=== PATIENT | female | born 1990 ===

== ENCOUNTER 2018-05-13 11:01 | Emergency (ER) | payer OTHER ==
[2018-05-13 11:46] LABS: SQUAMOUS EPITHIAL 21 /hpf (0-5); URINE BACTERIA RARE (<OCC); URINE BILIRUBIN NEGATIVE (NEGATIVE); URINE BLOOD NEGATIVE (NEGATIVE); URINE CLARITY Hazy (Clear); URINE COLOR Yellow (YELLOW); URINE GLUCOSE (UA) NORMAL (Normal); URINE LEUKOCYTE ESTERASE TRACE Leu/uL (Negative); URINE PROTEIN NEGATIVE (NEGATIVE); URINE UROBILINOGEN NORMAL mg/dL (0.2-1.0)
[2018-05-13 12:03] LABS: BASO % 0.6 % (0.0-2.0); EOS # 0.1 K/uL (0.0-0.7); EOS % 0.6 % (0.0-4.0); HEMOGLOBIN 13.3 g/dL (11.0-16.0); LYMPH % 23.6 % (20.0-40.0); MEAN CELL VOLUME 87.4 fL (81.0-99.0); MEAN CORPUSCULAR HEMOGLOBIN 29.9 pg (27.0-31.0); MEAN CORPUSCULAR HGB CONC 34.2 g/dL (33.0-37.0); MEAN PLATELET VOLUME 8.5 fL (7.2-11.7); MONO # 0.5 K/uL (0.0-0.8); MONO % 5.5 % (0.0-10.0); NEUT # 5.8 K/uL (1.8-7.0); NEUT % 69.7 % (50.0-75.0); RBC 4.46 Mil/uL (3.80-5.20); RED CELL DISTRIBUTION WIDTH 13.4 % (11.5-14.5); WHITE BLOOD COUNT 8.3 K/uL (4.8-10.8)
[2018-05-13 12:14] LABS: ALB/GLOB RATIO 1.1 (1.0-2.1); ALBUMIN 3.9 g/dL (3.5-5.0); ALT/SGPT 16 U/L (9-52); AST/SGOT 17 U/L (14-36); BLOOD UREA NITROGEN 8 mg/dL (7-17); CALCIUM 9.4 mg/dl (8.6-10.4); GFR AFRICAN-AMERICAN > 60; GFR NON-AFRICAN AMERICAN > 60
[2018-05-13 12:15] VITALS: RESP 18; O2SAT 100
--- NOTE | 2018-05-13 14:48 | US ---
Pelvic ultrasound History: . Pain. Comparison: None available. Technique: Real-time sonography was performed through the pelvis utilizing transabdominal and transvaginal technique. Findings: LMP of 03/03/2018. Estimated gestational age by LMP of 10 weeks and 1 day[place] [address] [place]CG. Uterus: 10.2 x 6.9 x 8.3 centimeters. Heterogeneous echotexture. Anteverted. Cervix measures 2.98 centimeters. Intrauterine gestational sac measures 4.4 centimeters corresponding to a gestational age of 9 weeks and 6 days. Some internal echoes and/or echogenic debris at the level of the gestational sac. Yolk sac measures 2.5 millimeters. [place]-rump length of 2.4 centimeters corresponding to a gestational age of 9 weeks and 1 day. Suggestion of a small amount of subchorionic hemorrhage measuring up to 8 millimeters. No heart rate identified. Right ovary: 3.1 x 1.9 x 2.5 centimeters. Normal flow. Left ovary: 3.5 x 2.4 x 3.4 centimeters. Normal flow. Heterogeneous cyst measuring 1.3 x 0.8 x 1.4. Small amount of free fluid in the pelvic cul-de-sac. Impression: Intrauterine corresponding to a gestational age of 9 weeks and 1 days by crown-rump length of 2.4 centimeters. No heart rate identified. This may represent a nonviable . Continued interval follow-up is recommended if clinically indicated. Increased echogenicity and/or echogenic debris noted within the intrauterine gestational sac. Intrauterine gestational sac measures 4.4 centimeters corresponding to a gestational age of 9 weeks 6 days. Suggestion of a small amount of subchorionic hemorrhage measuring up to 8 millimeters adjacent to the gestational sac. 1.4 centimeter left ovarian cyst. Limited 1st trimester ultrasound for viability purposes only. Continued interval followup with serial ultrasound, serial HCG levels, and gynecological consultation would be helpful if clinically indicated.
--- NOTE | 2018-05-13 14:55 | C.PDOC ---
History Of Present Illness 27 y/o female, , presents to ED for complaints of pelvic pain that began on Monday. Patient describes pain as menstrual cramping. Patient also states taking Tylenol PRESIDING STEWARD for relief. Denies vaginal bleeding, vaginal discharge, back pain, vomiting, dysuria, or urinary frequency. Time Seen by Provider: 05/13/18 11:08 Chief Complaint (Nursing): Abdominal Pain History Per: Patient History/Exam Limitations: no limitations Onset/Duration Of Symptoms: Days Current Symptoms Are (Timing): Still Present Location Of Pain/Discomfort: Suprapubic Radiation Of Pain To:: None Quality Of Discomfort: Cramping Associated Symptoms: denies: Fever, Chills, Nausea, Vomiting, Diarrhea, Urinary Symptoms Exacerbating Factors: None Alleviating Factors: None Last Bowel Movement: Today Recent travel outside of the [place]: No Abnormal Vaginal Bleeding: No : 1 Para: 0 Past Medical History Reviewed: Historical Data, Nursing Documentation, Vital Signs Vital Signs: Last Vital Signs Temp 97.9 F 05/13/18 15:45 Pulse 90 05/13/18 15:45 Resp 18 05/13/18 15:45 BP 115/74 05/13/18 15:45 Pulse Ox 100 05/13/18 15:53 - Medical History PMH: No Chronic Diseases Surgical History: No Surg Hx Family History: States: No Known Family Hx - Social History Hx Alcohol Use: No Hx Substance Use: No - Immunization History Hx Tetanus Toxoid Vaccination: No Hx Influenza Vaccination: No Hx Pneumococcal Vaccination: No Review Of Systems Constitutional: Negative for: Fever, Chills Gastrointestinal: Negative for: Nausea, Vomiting, Abdominal Pain, Diarrhea Genitourinary: Positive for: Pelvic Pain. Negative for: Dysuria, Frequency, Vaginal Discharge, Vaginal Bleeding Neurological: Negative for: Weakness, Numbness Physical Exam - Physical Exam Appears: Well, Non-toxic, No Acute Distress Skin: Normal Color, Warm, Dry, No Rash Head: Atraumatic, Normacephalic Eye(s): bilateral: Normal Inspection, PERRL, EOMI Oral Mucosa: Moist Neck: Supple Chest: Symmetrical, No Tenderness Cardiovascular: Rhythm Regular, No Murmur Respiratory: Normal Breath Sounds, No Decreased Breath Sounds, No Rales, No Rhonchi, No Wheezing Gastrointestinal/Abdominal: Soft, Tenderness (Suprapubic ), No Distention, No Guarding, No Rebound Extremity: Normal ROM, No Deformity Extremity: Bilateral: Atraumatic, Normal Color And Temperature, Normal ROM Neurological/Psych: Oriented x3, Normal Speech Gait: Steady ED Course And Treatment - Laboratory Results Result Diagrams: 05/13/18 11:59 05/13/18 11:59 O2 Sat by Pulse Oximetry: 100 (RA) Pulse Ox Interpretation: Normal - CT Scan/US Obstetrics US Other Rad Studies (CT/US): Read By Radiologist, Radiology Report Reviewed CT/US Interpretation: Pelvic ultrasound. History: . Pain. Comparison : None available. Technique: Real-time sonography was performed through the pelvis utilizing transabdominal and transvaginal technique. Findings: LMP of 03/03/2018. Estimated gestational age by LMP of 10 weeks and 1 day[place] [address] HCG. Uterus: 10.2 x 6.9 x 8.3 centimeters. Heterogeneous echotexture. Anteverted. Cervix measures 2.98 centimeters. Intrauterine gestational sac measures 4.4 centimeters corresponding to a gestational age of 9 weeks and 6 days. Some internal echoes and/or echogenic debris at the level of the gestational sac. Yolk sac measures 2.5 millimeters. [place]-rump length of 2.4 centimeters corresponding to a gestational age of 9 weeks and 1 day. Suggestion of a small amount of subchorionic hemorrhage measuring up to 8 millimeters. No heart rate identified. Right ovary: 3.1 x 1.9 x 2.5 centimeters. Normal flow. Left ovary: 3.5 x 2.4 x 3.4 centimeters. Normal flow. Heterogeneous cyst measuring 1.3 x 0.8 x 1.4. Small amount of free fluid in the pelvic cul-de-sac. Impression: Intrauterine corresponding to a gestational age of 9 weeks and 1 days by crown-rump length of 2.4 centimeters. No heart rate identified. This may represent a nonviable . Continued interval follow-up is recommended if clinically indicated. Increased echogenicity and/or echogenic debris noted within the intrauterine gestational sac. Intrauterine gestational sac measures 4.4 centimeters corresponding to a gestational age of 9 weeks 6 days. Suggestion of a small amount of subchorionic hemorrhage measuring up to 8 millimeters adjacent to the gestational sac. 1.4 centimeter left ovarian cyst. Limited 1st trimester ultrasound for viability purposes only. Continued interval followup with serial ultrasound, serial HCG levels, and gynecological consultation would be helpful if clinically indicated. Progress Note: Ordered BBK, blood work, urinalysis, urine culture, and Obstetrics US. Used fast food shift supervisor [id number]. Gave Patient copies of work up, follow up in ER or with BARREL POLISHER in 2-3 days. Discussed case with BARREL [employer] community resource consultant, Jenn Chowdhury., which agreed to discharge patient. Disposition - Disposition Referrals: [facility] [Outside] [facility] [Outside] Disposition: HOME/ ROUTINE Disposition Time: 14:53 Condition: STABLE Additional Instructions: Follow up with your OBGYN/ ER in 2-3 days. BETA HCG today 38,000. Return to ER if symptoms persist or worsen. Navneet un seguimiento con [facility] en 2-3 gomez BETA HCG hoy 38,000. Regrese a la zari de emergencias si los sntomas persisten o empeoran. Instructions: Threatened Miscarriage (DC) Forms: [employer] (Pakistani) Print Language: FRISIAN - Clinical Impression Clinical Impression: Abdominal pain during in first trimester - PA / COMPOUNDER HELPER / Resident Statement MD/DO has reviewed & agrees with the documentation as recorded. - Scribe Statement The provider has reviewed the documentation as recorded by the Scribdevin Santana All medical record entries made by the Scribe were at my direction and personally dictated by me. I have reviewed the chart and agree that the record accurately reflects my personal performance of the history, physical exam, medical decision making, and the department course for this patient. I have also personally directed, reviewed, and agree with the discharge instructions and disposition.
[2018-05-13 16:18] VITALS: BP 115/74; PULSE 90; TEMP 97.9
== END 2018-05-13 15:45 | disposition home or self-care (01) ==
LOC: C.ER 11:01
DX: O26.891 Other specified pregnancy related conditions, first trimester (principal); R10.9 Unspecified abdominal pain; Z3A.09 9 weeks gestation of pregnancy

== ENCOUNTER 2018-05-16 10:02 | Emergency (ER) | payer OTHER ==
[2018-05-16 10:08] VITALS: BP 120/81; PULSE 89; RESP 18; TEMP 97.7; O2SAT 99
--- NOTE | 2018-05-16 11:07 | C.PDOC ---
History Of Present Illness 27 y/o female presents to the ED for repeat beta-HCG quant. Patient was evaluated for menstrual-like cramps on 05/12, and found to have demise at 9 weeks and 1 day. Labs demonstrated low beta quant of 38,327. Since then, patient denies having any pain, cramps, or vaginal bleeding. She is [id number]. Time Seen by Provider: 05/16/18 10:20 Chief Complaint (Nursing): Medical Clearance History Per: Patient History/Exam Limitations: no limitations Onset/Duration Of Symptoms: Days Current Symptoms Are (Timing): Gone Reports Recently: Seen In ED Additional History Per: Prior Records Past Medical History Reviewed: Historical Data, Nursing Documentation, Vital Signs Vital Signs: Last Vital Signs Temp 97.7 F 05/16/18 10:05 Pulse 89 05/16/18 10:05 Resp 18 05/16/18 10:05 BP 120/81 05/16/18 10:05 Pulse Ox 99 05/16/18 11:11 Surgical History: No Surg Hx Family History: States: No Known Family Hx - Social History Hx Tobacco Use: No Hx Alcohol Use: No Hx Substance Use: No - Immunization History Hx Tetanus Toxoid Vaccination: No Hx Influenza Vaccination: No Hx Pneumococcal Vaccination: No Review Of Systems Constitutional: Negative for: Fever, Chills Respiratory: Negative for: Shortness of Breath Gastrointestinal: Negative for: Vomiting, Abdominal Pain Genitourinary: Negative for: Vaginal Discharge, Vaginal Bleeding Physical Exam - Physical Exam Appears: Non-toxic, No Acute Distress, Other (Obese female) Skin: Normal Color, Warm Head: Atraumatic, Normacephalic Eye(s): bilateral: Normal Inspection Nose: Normal Oral Mucosa: Moist Neck: Normal ROM Chest: Symmetrical Respiratory: No Accessory Muscle Use, Other (No acute respiratory distress) Extremity: Bilateral: Atraumatic, Normal Color And Temperature, Normal ROM Neurological/Psych: Oriented x3, Normal Speech ED Course And Treatment O2 Sat by Pulse Oximetry: 99 (RA) Pulse Ox Interpretation: Normal Medical Decision Making Medical Decision Making: Impression: demise, here for repeat labs Initial Plan: * Repeat beta quant Patient counseled regarding findings and follow up instructions. Disposition Doctor Will See Patient In The: Office Counseled Patient/Family Regarding: Studies Performed, Diagnosis - Disposition Referrals: [facility] [Outside] [facility] [Outside] [facility] [Outside] Disposition: HOME/ ROUTINE Disposition Time: 11:00 Condition: GOOD Additional Instructions: BLAKE embarasso NO esta progressando normalmente Debe tener blake flujo menstrual pronto La hormona de embarasso (QHCG) call BAJADO de 38,327 (05/13) hasta 30,665 hoy (05/16 ) Sigue con [facility] [place] [facility] de OBMARCIAN si NO tiene blake flujo menstrual en 2 semanas mas Instructions: Miscarriage (DC) Forms: [employer] (Bangladeshi) Print Language: [place] - Clinical Impression Clinical Impression: Missed - Scribe Statement The provider has reviewed the documentation as recorded by the Scribe Bernie Allison Provider Attestation: All medical record entries made by the Scribe were at my direction and personally dictated by me. I have reviewed the chart and agree that the record accurately reflects my personal performance of the history, physical exam, medical decision making, and the department course for this patient. I have also personally directed, reviewed, and agree with the discharge instructions and disposition.
== END 2018-05-16 11:33 | disposition home or self-care (01) ==
LOC: C.ER 10:02
DX: O02.1 Missed abortion (principal)

== ENCOUNTER 2018-05-21 04:02 | Emergency (ER) | payer OTHER ==
[2018-05-21 04:38] VITALS: O2SAT 100
[2018-05-21 04:54] LABS: SQUAMOUS EPITHIAL 3 /hpf (0-5); URINE BILIRUBIN NEGATIVE (NEGATIVE); URINE BLOOD 3+ (NEGATIVE); URINE CLARITY Hazy (Clear); URINE COLOR Yellow (YELLOW); URINE GLUCOSE (UA) NORMAL (Normal); URINE LEUKOCYTE ESTERASE TRACE Leu/uL (Negative); URINE PROTEIN 1+ mg/dL (NEGATIVE); URINE UROBILINOGEN NORMAL mg/dL (0.2-1.0)
[2018-05-21 04:55] LABS: HCG,QUALITATIVE URINE POSITIVE (NEGATIVE)
--- NOTE | 2018-05-21 06:30 | C.PDOC ---
History Of Present Illness 28-year-old female presents to the ED for evaluation of vaginal bleeding and abdominal pain which has been intermittent for 3 days. Patient was evaluated in this ED and was diagnosed with missed . She reports she was given a pill to induce labor. Patient notes her pain has intensified today and presents to the ED for further evaluation. She denies fever, chills, nausea. Time Seen by Provider: 05/21/18 04:37 Chief Complaint (Nursing): Abdominal Pain History Per: Patient History/Exam Limitations: no limitations Onset/Duration Of Symptoms: Days (3) Current Symptoms Are (Timing): Worse Location Of Pain/Discomfort: Suprapubic Radiation Of Pain To:: None Quality Of Discomfort: "Pain" Associated Symptoms: denies: Fever, Chills, Nausea, Vomiting Additional History Per: Patient Abnormal Vaginal Bleeding: Yes Past Medical History Reviewed: Historical Data, Nursing Documentation, Vital Signs Vital Signs: Last Vital Signs Temp 98.4 F 05/21/18 06:39 Pulse 86 05/21/18 06:39 Resp 16 05/21/18 06:39 BP 120/75 05/21/18 06:39 Pulse Ox 100 05/21/18 06:54 - Medical History PMH: No Chronic Diseases Surgical History: No Surg Hx Family History: States: Unknown Family Hx - Social History Hx Tobacco Use: No Hx Alcohol Use: No Hx Substance Use: No - Immunization History Hx Tetanus Toxoid Vaccination: No Hx Influenza Vaccination: No Hx Pneumococcal Vaccination: No Review Of Systems Constitutional: Negative for: Fever, Chills Gastrointestinal: Positive for: Abdominal Pain. Negative for: Nausea, Vomiting Genitourinary: Positive for: Vaginal Bleeding Physical Exam - Physical Exam Appears: Non-toxic, No Acute Distress Skin: Normal Color, Warm, Dry Head: Atraumatic, Normacephalic Eye(s): bilateral: Normal Inspection Oral Mucosa: Moist Neck: Supple Chest: Symmetrical, No Deformity, No Tenderness Cardiovascular: Rhythm Regular, No Murmur Respiratory: Normal Breath Sounds, No Rales, No Rhonchi, No Wheezing Gastrointestinal/Abdominal: Soft, Tenderness (suprapubic ), No Guarding, No Rebound Pelvic: Vaginal Bleeding (mild, no visible clots ) Extremity: Normal ROM, Capillary Refill (less than 2 seconds ) Neurological/Psych: Oriented x3, Normal Speech, Normal Cognition ED Course And Treatment - Laboratory Results Result Diagrams: 05/21/18 06:27 O2 Sat by Pulse Oximetry: 100 (on RA) Pulse Ox Interpretation: Normal Progress Note: Bloodwork and urinalysis ordered and reviewed. Toradol IM given. Case discussed with Dr. Suzy Esqueda ( SLEEVE [employer]KER physical education professor). Advises to wait for WBC and Hemoglobin count and if stable value pt may be d/c with f/u. Pt withnormal WBC but HGB 9.1, case d/w Dr Morrison, am OIL TANKER CAPTAIN physical education professor who is reviewing pt file for recommendation. pt emained stable, improved pain, asymptomatic, will s/o ANNEMARIE taylor, pending OIL TANKER CAPTAIN recommendation Disposition - Disposition Disposition Time: 07:35 Condition: STABLE Forms: [employer] (Yakut) - Clinical Impression Clinical Impression: Missed , Abdominal pain, Vaginal bleeding - PA / BAR HELPER / Resident Statement MD/DO has reviewed & agrees with the documentation as recorded. - Scribe Statement The provider has reviewed the documentation as recorded by the Scribe (Mirna Esqueda) All medical record entries made by the Scribe were at my direction and personally dictated by me. I have reviewed the chart and agree that the record accurately reflects my personal performance of the history, physical exam, medical decision making, and the department course for this patient. I have also personally directed, reviewed, and agree with the discharge instructions and disposition. Physician Patient Turnover Patient Signed Over To: Brionna Taylor Handoff Comments: pending OIL TANKER CAPTAIN recommendation
[2018-05-21 06:37] LABS: BASO % 0.5 % (0.0-2.0); EOS # 0.1 K/uL (0.0-0.7); EOS % 0.7 % (0.0-4.0); LYMPH % 20.4 % (20.0-40.0); MEAN CELL VOLUME 87.5 fL (81.0-99.0); MEAN CORPUSCULAR HEMOGLOBIN 30.7 pg (27.0-31.0); MEAN CORPUSCULAR HGB CONC 35.1 g/dL (33.0-37.0); MEAN PLATELET VOLUME 8.2 fL (7.2-11.7); MONO # 0.6 K/uL (0.0-0.8); MONO % 6.1 % (0.0-10.0); NEUT % 72.3 % (50.0-75.0); RBC 2.96 Mil/uL (3.80-5.20); RED CELL DISTRIBUTION WIDTH 13.3 % (11.5-14.5); WHITE BLOOD COUNT 9.6 K/uL (4.8-10.8)
[2018-05-21 06:52] LABS: HEMOGLOBIN 9.1 g/dL (11.0-16.0)
[2018-05-21] MEDS ORDERED: Sodium Chloride 0.9% 1,000 ML IV STA (07:40)
[2018-05-21] MEDS ORDERED: Sodium Chloride 0.9% 500 ML IV ONE (08:10)
--- NOTE | 2018-05-21 09:28 | US ---
Date of service: 05/21/2018 HISTORY: , missed ab , bleeding, ? retain products COMPARISON: None available. TECHNIQUE: Transabdominal and transvaginal FINDINGS: UTERUS: Measures 11.5 x 6.7 x 0.1 cm. Normal in size and appearance. No fibroid or other mass lesion seen. ENDOMETRIUM: Measures 30 mm in diameter. This is abnormally thickened. It is hypervascular. Significance uncertain. No endometrial mass or fluid. No intrauterine gestational sac. CERVIX: No cervical abnormality identified. RIGHT OVARY: Measures 4.2 x 1.8 x 3.4 cm. No solid mass. Normal flow. LEFT OVARY: Measures 4.2 x 2.0 x 3.2 cm. No solid mass. Normal flow. FREE FLUID: No significant free fluid noted. OTHER FINDINGS: None. IMPRESSION: No intrauterine gestation identified. Cannot rule out ectopic . Thickened hypervascular endometrium noted. Followup with transvaginal pelvic ultrasound and serial beta HCG is advised.
[2018-05-21 11:29] VITALS: BP 116/79; PULSE 82; RESP 20; TEMP 98.3
== END 2018-05-21 11:33 | disposition home or self-care (01) ==
LOC: C.ER 04:02
DX: O03.9 Complete or unspecified spontaneous abortion without complication (principal)
CPT/HCPCS: 76830; 76856; 81001; 84702; 84703; 85025; 96372; 99285; J1885; J7040

== ENCOUNTER 2018-05-24 00:48 | Emergency (ER) | payer OTHER ==
[2018-05-24 01:04] VITALS: RESP 20
--- NOTE | 2018-05-24 01:53 | C.PDOC ---
History Of Present Illness 28 y/o F p/w vaginal tissue unable to remove. Patient states she has been undergoing miscarriage, was given pills by her OB, finished taking, has been bleeding and having lower abdominal cramps. She states that today, she began expelling a large "blood clot" which she could not pull out so she came to ED. Denies syncope, fever, palpitations. Time Seen by Provider: 05/24/18 01:20 Chief Complaint (Nursing): Abdominal Pain Past Medical History Vital Signs: Last Vital Signs Temp 98.4 F 05/24/18 01:01 Pulse 100 H 05/24/18 01:01 Resp 20 05/24/18 01:01 BP 120/80 05/24/18 01:01 Pulse Ox 100 05/24/18 01:53 Family History: States: Unknown Family Hx - Social History Hx Tobacco Use: No Hx Alcohol Use: No Hx Substance Use: No - Immunization History Hx Tetanus Toxoid Vaccination: No Hx Influenza Vaccination: No Hx Pneumococcal Vaccination: No Review Of Systems Except As Marked, All Systems Reviewed And Found Negative. Constitutional: Negative for: Fever Cardiovascular: Negative for: Chest Pain Physical Exam - Physical Exam Additional Physical Exam Comments: Constitutional: No acute distress. Head: Normocephalic. Atraumatic. Eyes: PERRL. ENT: Moist mucous membranes. Neck: Supple. Cardiovascular: Regular rate. Radial pulse 2+ bilaterally. Chest: No tenderness. Respiratory: Clear to auscultation bilaterally. GI: Soft. Nontender. Nondistended. Pelvic: Performed with DAMARIS Banda as research assistant member. Upon my arrival into room, patient's "blood clot" which appears to be placenta like tissue expelled fully. Otherwise, small amount of blood in vaginal canal from cervix. No other abnormalities. Back: No CVA tenderness. Musculoskeletal: No tenderness or swelling of extremities. Skin: No rash. Neurologic: Alert, no focal deficit. ED Course And Treatment O2 Sat by Pulse Oximetry: 100 Medical Decision Making Medical Decision Making: Patient states OB will see her if she calls for an earlier appointment. Otherwise, miscarriage appears to be completing. Return to ED for fever, worsening pain, or any other problem. Disposition - Disposition Disposition: HOME/ ROUTINE Disposition Time: 01:53 Condition: STABLE Instructions: Miscarriage Forms: [employer] (Nepali), Work Excuse Print Language: ROMANIAN - Clinical Impression Clinical Impression:
[2018-05-24 02:08] VITALS: BP 124/85; PULSE 107; TEMP 98.8; O2SAT 96
== END 2018-05-24 02:08 | disposition home or self-care (01) ==
LOC: C.ER 00:48
DX: O03.9 Complete or unspecified spontaneous abortion without complication (principal)

== ENCOUNTER 2018-08-28 18:29 | Emergency (ER) | payer OTHER ==
--- NOTE | 2018-08-28 20:32 | C.PDOC ---
History Of Present Illness 28 year old female presents to the ER with a complaint of vaginal bleeding and mild hypogastric pain. Denies fever or chills. Chief Complaint (Nursing): Abdominal Pain History Per: Patient History/Exam Limitations: no limitations Onset/Duration Of Symptoms: Days Current Symptoms Are (Timing): Still Present Location Of Pain/Discomfort: Suprapubic Radiation Of Pain To:: None Quality Of Discomfort: Unable To Describe Associated Symptoms: denies: Fever, Chills Exacerbating Factors: None Alleviating Factors: None Recent travel outside of the [place]: No Abnormal Vaginal Bleeding: Yes Past Medical History Reviewed: Historical Data, Nursing Documentation, Vital Signs Vital Signs: Last Vital Signs Temp 98.2 F 08/28/18 18:47 Pulse 102 H 08/28/18 18:47 Resp 20 08/28/18 18:47 BP 115/76 08/28/18 18:47 Pulse Ox 100 08/28/18 18:47 Family History: States: Unknown Family Hx - Social History Hx Tobacco Use: No Hx Alcohol Use: No Hx Substance Use: No - Immunization History Hx Tetanus Toxoid Vaccination: No Hx Influenza Vaccination: No Hx Pneumococcal Vaccination: No Review Of Systems Constitutional: Negative for: Fever, Chills Cardiovascular: Negative for: Chest Pain, Palpitations Respiratory: Negative for: Cough, Shortness of Breath Gastrointestinal: Positive for: Abdominal Pain. Negative for: Nausea, Vomiting Genitourinary: Positive for: Vaginal Bleeding Neurological: Negative for: Weakness, Numbness Physical Exam - Physical Exam Appears: Non-toxic Skin: Normal Color, Warm, Dry Head: Atraumatic, Normacephalic Eye(s): bilateral: Normal Inspection Oral Mucosa: Moist Neck: Normal, Supple Chest: Symmetrical, No Tenderness Cardiovascular: Rhythm Regular Respiratory: Normal Breath Sounds, No Rales, No Rhonchi, No Wheezing Gastrointestinal/Abdominal: Soft, Tenderness (Mild hypogastric), No Guarding, No Rebound Pelvic: Other (Cervix closed, scant old blood in vault, no active bleeding) Neurological/Psych: Oriented x3, Normal Speech ED Course And Treatment - Laboratory Results Result Diagrams: 08/28/18 20:49 08/28/18 20:49 O2 Sat by Pulse Oximetry: 100 (Room air) Pulse Ox Interpretation: Normal Progress Note: Blood work, urinalysis, and pelvis US ordered. Disposition Counseled Patient/Family Regarding: Diagnosis - Disposition Referrals: [facility] [Outside] Disposition: HOME/ ROUTINE Disposition Time: 23:35 Condition: STABLE Instructions: Bleeding With (DC) Forms: [employer] (Russian), Gen Discharge Inst Hebrew Print Language: SAO TOMEAN - POA Present On Arrival: None - Clinical Impression Clinical Impression: Bleeding in early - Scribe Statement The provider has reviewed the documentation as recorded by the Scribe Gómez Bautista All medical record entries made by the Bernardaibdevin were at my direction and personally dictated by me. I have reviewed the chart and agree that the record accurately reflects my personal performance of the history, physical exam, medical decision making, and the department course for this patient. I have also personally directed, reviewed, and agree with the discharge instructions and disposition.
[2018-08-28 20:52] LABS: BASO # 0.1 K/uL (0.0-0.2); BASO % 1.1 % (0.0-2.0); EOS % 0.3 % (0.0-4.0); HEMOGLOBIN 10.3 g/dL (11.0-16.0); LYMPH # 2.4 K/uL (1.0-4.3); LYMPH % 20.9 % (20.0-40.0); MEAN CORPUSCULAR HEMOGLOBIN 22.6 pg (27.0-31.0); MEAN CORPUSCULAR HGB CONC 31.2 g/dL (33.0-37.0); MEAN PLATELET VOLUME 8.6 fL (7.2-11.7); MONO # 0.7 K/uL (0.0-0.8); MONO % 6.6 % (0.0-10.0); NEUT # 8.1 K/uL (1.8-7.0); NEUT % 71.1 % (50.0-75.0); RBC 4.54 Mil/uL (3.80-5.20); RED CELL DISTRIBUTION WIDTH 19.6 % (11.5-14.5); WHITE BLOOD COUNT 11.3 K/uL (4.8-10.8)
[2018-08-28 21:00] LABS: MEAN CELL VOLUME 72.4 fL (81.0-99.0)
[2018-08-28 21:04] LABS: ALB/GLOB RATIO 1.2 (1.0-2.1); ALBUMIN 3.8 g/dL (3.5-5.0); ALT/SGPT 16 U/L (9-52); AST/SGOT 18 U/L (14-36); BLOOD UREA NITROGEN 14 mg/dL (7-17); CALCIUM 8.5 mg/dl (8.6-10.4); GFR NON-AFRICAN AMERICAN > 60; PROTHROMBIN TIME 11.4 SECONDS (9.7-12.2); SQUAMOUS EPITHIAL 2 /hpf (0-5); URINE BACTERIA RARE (<OCC); URINE BILIRUBIN NEGATIVE (NEGATIVE); URINE BLOOD 1+ (NEGATIVE); URINE CLARITY Clear (Clear); URINE COLOR Yellow (YELLOW); URINE GLUCOSE (UA) NORMAL (Normal); URINE LEUKOCYTE ESTERASE NEG Leu/uL (Negative); URINE PROTEIN NEGATIVE (NEGATIVE); URINE UROBILINOGEN NORMAL mg/dL (0.2-1.0)
[2018-08-29] VITALS: BP 106/68; PULSE 81; RESP 17; TEMP 98; O2SAT 99
--- NOTE | 2018-08-29 10:08 | US ---
Pelvic ultrasound HISTORY: . Vaginal bleeding. COMPARISON: None available. Technique: Real-time sonography was performed through the pelvis utilizing transvaginal techniques. FINDINGS: Uterus: 9.6 x 6.1 x 7.3 centimeters. Heterogeneous echotexture. Anteverted. Cervix measures 3.5 centimeters. Intrauterine with intrauterine gestational sac measuring 2.4 centimeters corresponding to a gestational age of 7 weeks and 0 days. Yolk sac measures 2 millimeters. [place]-rump length measures 9.5 millimeters corresponding to a gestational age of 7 weeks and 0 days. Suggestion of a small amount of subchorionic hemorrhage adjacent to the gestational sac measuring up to 8 x 9 x 9 millimeters. heart rate of 132 beats per minute. No free fluid in the pelvic cul-de-sac. Right ovary 4.9 x 3.5 x 4.4 centimeters. Normal flow. Hypoechoic cyst measuring 3.7 x 2.4 x 3.7 centimeters. Left ovary 3.3 x 1.6 x 2.9 cm. Normal flow. Impression: Intrauterine corresponding to a gestational age of approximately 7 weeks 0 days by crown-rump length of 9.5 mm. heart rate of 132 beats. Suggestion of a small amount of subchorionic hemorrhage adjacent to the gestational sac measuring up to 8 x 9 x 9 millimeters. Hypoechoic right ovarian cyst measuring 3.7 centimeters. Limited 1st trimester ultrasound for viability purposes only. Continued interval followup with serial ultrasound, serial HCG levels, and gynecological consultation would be helpful if clinically indicated. These findings were preliminarily reported at 11:31 p.m. on 08/28/[address] Duke Bay from [employer].
== END 2018-08-29 | disposition home or self-care (01) ==
LOC: C.ER 18:29
DX: O46.91 Antepartum hemorrhage, unspecified, first trimester (principal); O34.81 Maternal care for other abnormalities of pelvic organs, first trimester; N83.201 Unspecified ovarian cyst, right side; Z3A.01 Less than 8 weeks gestation of pregnancy

== ENCOUNTER 2018-12-03 11:43 | Outpatient (CLI) | payer OTHER | END 2018-12-03 11:44 | disposition home or self-care (01) | LOC: C.LAB 11:43 | DX: Z34.92 Encounter for supervision of normal pregnancy, unspecified, second trimester (principal) ==

== ENCOUNTER 2019-02-22 20:20 | Emergency (ER) | payer OTHER ==
[2019-02-22 20:39] VITALS: BMI 35.4
[2019-02-22 20:58] LABS: SQUAMOUS EPITHIAL 3 /hpf (0-5); URINE BACTERIA RARE (<OCC); URINE BILIRUBIN NEGATIVE (NEGATIVE); URINE BLOOD NEGATIVE (NEGATIVE); URINE CLARITY Clear (Clear); URINE COLOR Yellow (YELLOW); URINE GLUCOSE (UA) NORMAL (Normal); URINE LEUKOCYTE ESTERASE 1+ Leu/uL (Negative); URINE PROTEIN NEGATIVE (NEGATIVE); URINE UROBILINOGEN NORMAL mg/dL (0.2-1.0)
[2019-02-22] MEDS ORDERED: Lactated Ringer's 1,000 ML IV ONE (21:16)
[2019-02-22 21:40] LABS: BASO # 0.1 K/uL (0.0-0.2); BASO % 0.8 % (0.0-2.0); EOS % 0.4 % (0.0-4.0); HEMOGLOBIN 11.9 g/dL (11.0-16.0); LYMPH % 26.4 % (20.0-40.0); MEAN CELL VOLUME 87.7 fL (81.0-99.0); MEAN CORPUSCULAR HEMOGLOBIN 29.3 pg (27.0-31.0); MEAN CORPUSCULAR HGB CONC 33.4 g/dL (33.0-37.0); MEAN PLATELET VOLUME 8.4 fL (7.2-11.7); MONO # 0.6 K/uL (0.0-0.8); MONO % 7.4 % (0.0-10.0); NRBC % 0.1 % (0.0-2.0); RBC 4.08 Mil/uL (3.80-5.20); RED CELL DISTRIBUTION WIDTH 14.6 % (11.5-14.5); WHITE BLOOD COUNT 7.7 K/uL (4.8-10.8)
[2019-02-22 21:57] LABS: ALB/GLOB RATIO 1.1 (1.0-2.1); ALBUMIN 3.7 g/dL (3.5-5.0); ALT/SGPT 6 U/L (9-52); AST/SGOT 16 U/L (14-36); BLOOD UREA NITROGEN 7 mg/dL (7-17); CALCIUM 9.2 mg/dl (8.6-10.4); GFR NON-AFRICAN AMERICAN > 60
--- NOTE | 2019-02-22 22:40 | OBHP ---
Datetime: 02/22/2019 21:29 IP Adm Impression: , intrauterine ; No Active Labor; Intact Membranes IP Chief Complaint Other: Pelvic Cramping Swollen LE's IP Admit Plan: Observation/Evaluation Admit Comment, IP Provider: 28 yo female with an IUP at 32.4 weeks and presents to L_D with c/o of low abdominal cramping and increased LE swelling. Admits to adequate FM but denies LOF< VB or VD. Denies any complications including no Hx of HTN. Admits to drinking little to no water . Possible Dehydration. PMHX _ PSHx: Negative Meds. PNV NKDA Social Hx Negative x 3 Past OB Hx: demise at 3 months PE as noted above A_P at 34.6 weeks Mild LE swelling without pain. No calf tenderness FHT's reassuring for GA Ocassional uterine contraction UA, CBC and CMP ordered IV fluids started Pelvic Type - PN: Adequate Extremities - PN: Normal Abdomen - PN: Normal Back - PN: Normal Breast - PN: Not Done Lungs - PN: Normal Heart - PN: Normal Thyroid - PN: Normal Neurologic - PN: Not Done HEENT - PN: Not Done General - PN: Normal FHR - Baseline A Provider: 130 Membranes, Provider: Intact Gestation - Est Wks by US: 32.4 EGA AdmitDate IP: 32.4 Vital Signs Provider: Reviewed IP Chief Complaint: Maternal discomfort; Other NICHD Variability Prov Fetus A: Moderate 6-25bpm NICHD Accel Fetus A IP Provider: [id number] NICHD Decel Fetus A IP Provider: None Genitourinary Exam: Normal DTRs - PN: Normal
[2019-02-22] MEDS ORDERED: Betamethasone Soluspan 30 mg/5mL Inj Susp IM ONE (23:33)
--- NOTE | 2019-02-22 23:44 | OBDCSUM ---
Datetime: 02/22/2019 23:35 Discharged to, Provider: Home Follow up at, Provider: Clinic Disch Instr Activity: Bedrest Disch Instr Diet: Regular Discharge Instructions, Provider: Routine instructions given Follow up in weeks, Provider: 3-4 days or as needed Contraception discussed, Prov: No Disch Activity Restrictions: No exercising; No lifting; Minimize stair-climbing; No sexual activity; Nothing in vagina - [place], tampons, douche Discharge Comment, Provider: 28 yo female with an IUP at 32.4 weeks and presents to L_D wit h c/o of low abdominal cramping and increased LE swelling. Admits to adequate FM but denies LOF< VB o r VD. Denies any complications including no Hx of HTN. Admits to drinking little to no wate r. Possible Dehydration. PMHX _ PSHx: Negative Meds. PNV NKDA Social Hx Negative x 3 Past OB Hx: demise at 3 months PE as noted above A_P at 34.6 weeks Mild LE swelling without pain. No calf tenderness FHT's reassuring for GA Ocassional uterine contractions SVE closed, long and high FFN done Candidiasis and Diflucan 125 mg po given UA with mild dehydration CBC and CMP essentially WNL IV fluids hydration given Celestone IM also given and will return in 24 hours for repeat Celestone Stable and Satisfactory condition and Discharge ome with instructions to pelvic rest, increase po water intake and labor precautions and pt verbalize understanding. Discharge Diagnosis Prov Other: Contractions Dehydration Candidiasis
[2019-02-23 06:04] VITALS: BP 113/68; PULSE 99; RESP 18; TEMP 98.4
[2019-02-23 13:02] LABS: SPECIMEN COMMENT FROM CL
== END 2019-02-23 00:25 | disposition home or self-care (01) ==
LOC: C.EROB 20:20
DX: O47.03 False labor before 37 completed weeks of gestation, third trimester (principal); O99.283 Endocrine, nutritional and metabolic diseases complicating pregnancy, third trimester; E86.0 Dehydration; O98.813 Other maternal infectious and parasitic diseases complicating pregnancy, third trimester; B37.9 Candidiasis, unspecified; Z3A.34 34 weeks gestation of pregnancy
CPT/HCPCS: 80053; 81001; 82731; 85025; 96360; 96372; 99284; J0702; J7120